=== PATIENT | female | born 2000 | race Caucasian/White ===

== ENCOUNTER 2022-07-20 07:19 | Outpatient (CLI) | payer OTHER, SELFPAY ==
--- NOTE | ~2022-07-20 | XR_ITS ---
EXAMINATION: XR chest 2V 07/20/2022 08:24 INDICATION: Intermittent left-sided chest pain PROCEDURE: 2 view chest COMPARISON: No prior studies for comparison. FINDINGS: The lungs are clear. The cardiomediastinal silhouette is within normal limits. There are no pleural effusions. There is no pneumothorax suspected. IMPRESSION: 1: NO ACUTE CARDIOPULMONARY DISEASE. Reviewed, dictated and finalized at location A. Y PROCESSING SUPERVISOR
[2022-07-20 07:56] LABS: Basophils Percent Auto 0.5 % (0.2-1.2); Eosinophils Absolute Auto 0.2 K/mm3 (0-0.3); Eosinophils Percent Auto 2.8 % (0-4.4); Hematocrit 43.4 % (37.0-47.0); Hemoglobin 14.6 g/dL (12.0-15.0); Immature Granulocyte Absolute 0.02 K/mm3 (0.00-0.031); Immature Granulocyte Percent A 0.3 % (0-0.5); Lymphocytes Absolute Auto 1.75 K/mm3 (0.9-3.2); Lymphocytes Percent Auto 26.9 % (18.3-44.2); Mean Corpuscular HGB Conc 33.6 g/dl (32-36); Mean Corpuscular Hemoglobin 30.7 pg (26-34); Mean Corpuscular Volume 91.4 fl (80-100); Mean Platelet Volume 10.1 fl (7.4-10.4); Monocytes Absolute Auto 0.6 K/mm3 (0.1-0.6); Monocytes Percent Auto 9.1 % (2.6-8.5); Neutrophils Absolute Auto 3.9 K/mm3 (1.3-6.7); Neutrophils Percent Auto 60.4 % (45.5-73.1); Platelet Count Result 222 k/mm3 (150-375); Red Blood Count 4.75 M/mm3 (4.2-5.4); Red Cell Distribution Width 11.6 % (11.5-14.5); White Blood Count 6.5 K/mm3 (4.5-10.0)
--- NOTE | 2022-07-20 07:57 | ECG_ITS ---
Measurements Intervals [place] Rate: 69 P: 59 HI: 117 QRS: 75 QRSD: 85 T: 50 QT: 367 QTc: 393 Interpretive Statements SINUS RHYTHM WITH SINUS ARRHYTHMIA WITH SHORT HI INTERVAL BORDERLINE ECG NO PREVIOUS ECG AVAILABLE FOR COMPARISON Electronically Signed On 07-20-2022 9:51:25 SUPERVISOR CELL ROOM by Jaspreet Davis D.O.
[2022-07-20 08:11] LABS: Anion Gap 9 mmol/L (8-16); Blood Urea Nitrogen 13 mg/dL (7-17); Calcium 8.7 mg/dL (8.4-10.2); Carbon Dioxide 24 mmol/L (22-30); Chloride 108 mmol/L (98-107); Estimated Glomerular Filt Rate > 60; Glucose 83 mg/dL (65-110); Potassium 3.8 mmol/L (3.4-5.0); Sodium 141 mmol/L (137-145)
== END 2022-07-20 07:20 | disposition home or self-care (01) ==
LOC: ANHLAB 07:23
PROVIDERS: PCP Family Medicine; Visit Provider Nurse Practitioner Family
DX: R07.9 Chest pain, unspecified (principal); R06.02 Shortness of breath; R00.0 Tachycardia, unspecified
CPT/HCPCS: 36415; 71046; 80048; 84443; 85025; 93005

== ENCOUNTER 2025-07-13 14:57 | Outpatient (CLI) | payer BC, SELFPAY ==
--- NOTE | ~2025-07-13 | XR_ITS ---
EXAMINATION: XR knee LT 3V, 07/13/2025 15:05 SHEARING SUPERVISOR HISTORY: M25.562 - Pain in left knee COMPARISON: No comparisons available. Findings: No acute fracture or malalignment. No significant degenerative changes. Soft tissues unremarkable. Impression: No acute fracture or malalignment. Reviewed, dictated and finalized at location P. RING SUPERVISOR Impression: No acute fracture or malalignment.
== END 2025-07-13 14:58 | disposition home or self-care (01) ==
PROVIDERS: PCP Family Medicine; Visit Provider Family Medicine
DX: M25.562 Pain in left knee (principal)
CPT/HCPCS: 73562

== ENCOUNTER 2025-08-02 15:40 | Outpatient (RCR) | payer BC, SELFPAY ==
--- NOTE | 2025-08-02 16:24 | PTOPEVAL1 ---
Assessment and note entered by Beth Ruvalcaba, PT Evaluation Information Assessment Status Evaluation ICD-10 Condition Codes (PT) Pain in left knee M25.562 Onset 07/20/25 Subjective Information Pt reports she has had knee pain on and off since high school and that her pain varies in severity and can also switch between knees. She did not play any sports in high school. She states she got x-rays and they were negative. She denies pain at this time and states it does worsen she's on her menstrual cycle. She states that during her last cycle she had pain during standing that made her want to sit down. She states she goes to the gym and that if her knee was hurting, doing the stair stepper would help it. She states she does hip thrusts, squats, single leg split squats, RDLs, and leg press at the gym. Reported Pain Level Pain Score 0: Self Report Assessment PT Clinical Summary Ms. Hinds is a 24 yo female presenting to skilled PT evaluation for intermittent bilateral knee pain. While pt does demonstrate mild mm tightness in the hamstrings and quadriceps, all other objective assessments were negative for any intra or extraarticular knee joint pathology, and she does not appear to be a candidate for PT at this time. Educated pt to monitor her knee pain during her menstrual cycle and to discuss this with her doctor, along with the option to return to PT if her pain recurs and/or worsens. Provided HEP printout for bilat hip and knee mm stretching. Plan of Care PT Services Indicated No Treatment Frequency and Eval and discharge, not a candidate for PT Duration These treatments will address the objective and functional deficits as defined above. The patient will be advanced safely and appropriately in order for the patient to progress towards his/her prior level of function. Additional exercises will be introduced and as well as a comprehensive home exercise program upon discharge, if needed, ?to ensure carryover of functional gains achieved in the clinic. This treatment plan has been reviewed and agreement upon by the patient.
== END 2025-08-02 20:00 | disposition home or self-care (01) ==
LOC: CHSPT 15:40
PROVIDERS: Visit Provider Nurse Practitioner Adult Health
DX: M25.562 Pain in left knee (principal)
CPT/HCPCS: 97161